=== PATIENT | male | born 1990 | race Caucasian/White ===

== ENCOUNTER 2017-04-09 19:48 | Emergency (ER) | payer OTHER ==
[~2017-04-09] VITALS: Ht 182.9 cm; Wt 88.3 kg
[2017-04-09 21:10] LABS: EOSINOPHIL (%) 2.9 % (0-5); EOSINOPHIL COUNT 0.2 K/uL (0-0.3); IMMATURE GRANULOCYTE (%) 0.2 % (0.0-0.7); INSTRUMENT ABS NEUTROPHIL CT 3.8 K/uL; LYMPHOCYTE COUNT 1.7 K/uL (1.0-2.8); MCH 29.7 PG (29.0-34.0); MCHC 33.7 G/DL (30.0-36.0); MCV 88.1 FL (86-99); MEAN PLAT.VOLUME 9.4 uM^3 (9.0-12.4); MONOCYTE (%) 6.5 % (3-12); MONOCYTE COUNT 0.4 K/uL (0-0.8); NEUTROPHIL (%) 62.5 % (45-76); NEUTROPHIL COUNT 3.8 K/uL (1.8-6.4); PLATELET COUNT 289 K/uL (156-360); RBC DIS.WIDTH-CV 12.1 % (11.8-14.6); RBC DIS.WIDTH-SD 39.2 % (39-53); RED BLOOD COUNT 5.22 M/uL (4.00-5.50); WHITE BLOOD COUNT 6.1 K/uL (4.1-10.2)
[2017-04-09 21:21] LABS: CHLORIDE 104 mEq/L (99-109); POTASSIUM 4.4 mEq/L (3.7-5.4); SODIUM 140 mEq/L (136-147)
[2017-04-09 21:23] LABS: GLUCOSE 100 mg/dL (70-99)
[2017-04-09 21:24] LABS: ANION GAP 10 MEQ/L (2-14)
[2017-04-09 21:25] LABS: TOTAL BILIRUBIN 0.3 mg/dL (0.0-1.0)
[2017-04-09 21:27] LABS: ALKALINE PHOSPHATASE 69 IU/L (3-129); GFR ESTIMATE (CALCULATED) > 59 mL/min/
[2017-04-09 21:28] LABS: UREA NITROGEN (BUN) 22 mg/dL (9-23)
[2017-04-09 21:29] LABS: DIRECT BILIRUBIN 0.1 mg/dL (0.0-0.3)
[2017-04-09 22:48] VITALS: BP 134/74
[2017-04-10 11:00] LABS: AHBS INDEX > 1000.00; HPCA INDEX 0.11
[2017-04-10 11:01] LABS: HEPATITIS B SURFACE ANTIBODY REACTIVE; HIV INDEX 0.06; HIV-1/2 AB/AG COMBO Nonreactive
== END 2017-04-09 22:48 | disposition home or self-care (01) ==
LOC: EXP 19:48 → EME 19:48 → EXP 22:48
PROVIDERS: Physician Assistant
DX: Z77.21 Contact with and (suspected) exposure to potentially hazardous body fluids (principal); Y92.149 Unspecified place in prison as the place of occurrence of the external cause; Y99.0 Civilian activity done for income or pay
CPT/HCPCS: 80048; 80076; 85025; 86703; 86706; 86803; 99281; 99284